=== PATIENT | female | born 1990 | race African-American/Black ===

== ENCOUNTER 2021-05-25 16:11 | Emergency (ER) | payer MEDICAID, OTHER ==
[~2021-05-25] VITALS: Ht 154.9 cm; Wt 58.1 kg
[2021-05-25] MEDS ORDERED: ACETAMINOPHEN 325 MG TAB PO ONE (17:00)
[2021-05-25 17:49] VITALS: BP 124/69
[2021-05-25] MEDS ORDERED: ACET-1080 PO (17:49)
[2021-05-25] MEDS ORDERED: METH500T22 PO (17:49)
== END 2021-05-25 18:17 | disposition home or self-care (01) ==
LOC: ER 16:11 → EDBD 16:11 → ER 18:17
DX: S29.011A Strain of muscle and tendon of front wall of thorax, initial encounter (principal); S40.011A Contusion of right shoulder, initial encounter; V43.62XA Car passenger injured in collision with other type car in traffic accident, initial encounter; Y93.89 Activity, other specified; Y92.89 Other specified places as the place of occurrence of the external cause; Y99.8 Other external cause status
CPT/HCPCS: 71101; 73030